=== PATIENT | female | born 1975 | race Caucasian/White ===

== ENCOUNTER → 2016-07-31 | Outpatient (CLI) | payer OTHER | END | disposition home or self-care (01) | LOC: GMAL 10:54 | PROVIDERS: ATTEND Family Medicine | DX: L73.2 Hidradenitis suppurativa (principal); D53.9 Nutritional anemia, unspecified ==

== ENCOUNTER → 2016-08-01 | Outpatient (CLI) | payer OTHER, SELFPAY ==
--- NOTE | 2016-08-01 16:02 | US ---
Study: Gallbladder ultrasound. Indication: ABD PAIN Technical: Multiplanar, grayscale sonogram of the right upper quadrant of the abdomen obtained. Comparison: None. Findings: The liver is diffusely increased in echogenicity consistent with hepatic steatosis. The liver measures 16.5 cm in length. No discrete live mass. No gallstones, gallbladder wall thickening, or pericholecystic edema. The common bile duct measures 3.7 mm in diameter. No intrahepatic biliary ductal dilatation. The visualized portions of the aorta and inferior vena cava are normal. The pancreas is unremarkable. Impression: Hepatic steatosis and hepatomegaly. Normal sonographic appearance of the gallbladder. Electronically signed by: Michael Briggs MD 08/01/2016 4:01 PM CDT
== END | disposition home or self-care (01) ==
LOC: US 08:17
PROVIDERS: ATTEND Family Medicine
DX: R10.9 Unspecified abdominal pain (principal)

== ENCOUNTER → 2017-03-27 | Outpatient (CLI) | payer OTHER ==
--- NOTE | 2017-03-27 14:54 | MRI ---
MRI right hip without contrast INDICATION: Right hip pain NOS TECHNIQUE: Noncontrast MR imaging right hip standard protocol FINDINGS: There is minimal bilateral greater trochanteric bursal edema with mild tendinopathy of the gluteal tendons. No fracture or osteonecrosis. There is edema in the upper left sacrum adjacent to the articular facet at L5-S1. This is possibly stress reaction or reactive edema from facet arthrosis. No evidence of aggressive bone destruction. This is the asymptomatic side. No displaced labral tear. No hip flexor injury. No hamstring injury. No focal osteochondral lesion. IMPRESSION: Minimal bilateral trochanteric bursal edema No acute internal derangement right hip Edema upper left sacrum adjacent to the left L5-S1 facet joint see above discussion Electronically signed by: Bal Joe MD 03/27/2017 2:48 PM [facility]
--- NOTE | 2017-03-27 18:12 | MRI ---
EXAM DESCRIPTION: Lumbar Spine w/o Contrast MRI. CLINICAL HISTORY: LOW BACK PAIN COMPARISON: MRI scan of the right hip on the same visit. TECHNIQUE: Multiplanar, multiple standard sequences, non contrast MRI, lumbar spine. FINDINGS: L5-S1: Minimal disc desiccation with disc space preserved. Posterior midline and left paracentral 4 mm bulge of the disc abutting the thecal sac and the descending left S1 nerve above the left subarticular recess. Canal narrowing, no narrowing above the recess. Bilateral facet arthrosis and flavum ligament hypertrophy. Bilateral moderate bony foraminal narrowing, also caused by facet arthrosis. L4-5: Minimal desiccation with disc space preserved. No disc bulge. Minimal arthrosis right facet and ligament hypertrophy. Mild foraminal narrowing. Left foramen is patent. L3-4. Normal signal in the disc and disc space preserved. Canal and foramina are patent. Facets and posterior ligaments are unremarkable. L2-3: Normal signal in the disc and disc space preserved. Canal and foramina are patent. Facets and posterior ligaments are unremarkable. L1-2: Normal signal in the disc and disc space preserved. Canal and foramina are patent. Facets and posterior ligaments unremarkable. Conus terminates at this level. T12-L1: Normal signal in the disc and disc space preserved. Canal and foramina patent. Facets and posterior ligaments unremarkable.. Paravertebral soft tissues unremarkable.. Marrow edema in the bilateral L5 pedicles. Marrow edema in the left S1 segment at the base of the facet with similar signal but not as large on the contralateral right aspect. Normal marrow signal in the remaining vertebral bodies and the posterior elements. Vertebral bodies are not compressed at any level. IMPRESSION: 1. Posterior midline/left paracentral bulge L5-S1 disc abutting the thecal sac and the descending left S1 nerve root above the left subarticular recess. Bilateral foraminal narrowing caused by bony canal and facet hypertrophy. 2. Right facet hypertrophy at L4-5 narrowing the right foramen. 3. Bilateral marrow edema in the pedicles and at the bases of the S1 facets. This can be a result of stress or indicate impending stress fracture. Electronically signed by: Gerber Reyes MD 03/27/2017 6:11 PM [facility] [employer]
== END ==
LOC: MRI 09:08
PROVIDERS: ATTEND Obstetrics & Gynecology
DX: M25.50 Pain in unspecified joint (principal); M51.27 Other intervertebral disc displacement, lumbosacral region

== ENCOUNTER → 2017-04-19 | Outpatient (CLI) | payer OTHER | LOC: LAB.O 14:41 | PROVIDERS: ATTEND Psychiatry & Neurology Neurology | DX: G61.81 Chronic inflammatory demyelinating polyneuritis (principal); M54.5 Low back pain; M35.1 Other overlap syndromes; G70.00 Myasthenia gravis without (acute) exacerbation; G04.89 Other myelitis; M81.8 Other osteoporosis without current pathological fracture; M35.3 Polymyalgia rheumatica; M33.22 Polymyositis with myopathy; B02.29 Other postherpetic nervous system involvement; M54.12 Radiculopathy, cervical region; M54.13 Radiculopathy, cervicothoracic region; M54.16 Radiculopathy, lumbar region; I73.00 Raynaud's syndrome without gangrene; G25.89 Other specified extrapyramidal and movement disorders; M06.9 Rheumatoid arthritis, unspecified; D86.9 Sarcoidosis, unspecified; M35.00 Sjogren syndrome, unspecified; M32.10 Systemic lupus erythematosus, organ or system involvement unspecified; M31.6 Other giant cell arteritis; G45.9 Transient cerebral ischemic attack, unspecified; I77.9 Disorder of arteries and arterioles, unspecified; H81.49 Vertigo of central origin, unspecified ear ==